=== PATIENT | male | born 1950 | race Caucasian/White ===

== ENCOUNTER 2021-12-23 09:26 | Observation (INO) ==
--- NOTE | 2021-12-12 10:54 | PAT Medication Instructions ---
Medication Instructions Date of Service December 12, 2021 Home Medications cholecalciferol (vitamin D3) 125 mcg (5,000 unit) capsule 125 mcg PO QAM lactobacillus combination no.4 3 billion cell capsule (Probiotic) 3,000 mmu cells PO Q OTHER DAY mecobalamin (vitamin B12) 1,000 mcg disintegrating tablet,sublingual 1,000 mcg SUBLINGUAL QAM famotidine 20 mg tablet 20 mg PO BID multivitamin 1 tab PO QAM psyllium seed (sugar) oral powder (Metamucil (sugar)) 1 tbsp PO QAM turmeric root extract 500 mg capsule 500 mg PO QAM STOP taking 2 weeks before surgery turmeric root extract 500 mg capsule 500 mg PO QAM DO NOT take the morning of surgery cholecalciferol (vitamin D3) 125 mcg (5,000 unit) capsule 125 mcg PO QAM lactobacillus combination no.4 3 billion cell capsule (Probiotic) 3,000 mmu cells PO Q OTHER DAY mecobalamin (vitamin B12) 1,000 mcg disintegrating tablet,sublingual 1,000 mcg SUBLINGUAL QAM multivitamin 1 tab PO QAM psyllium seed (sugar) oral powder (Metamucil (sugar)) 1 tbsp PO QAM Take morning of surgery With a small sip of water, OTHERWISE NOTHING TO EAT OR DRINK AFTER MIDNIGHT: famotidine 20 mg tablet 20 mg PO BID Take evening before surgery famotidine 20 mg tablet 20 mg PO BID Other Notes If you have any questions please call us at [phone] or [phone] or [phone] or [phone]
--- NOTE | 2021-12-15 13:51 | Anesthesiology Consultation ---
Date of Service December 15, 2021 Assessment & Plan (1) Encounter for pre-operative examination: - will attempt to obtain last PCP office note. - COVID screening: Per assessment on 12/15/2021: Travel screen negative, no known COVID-19 positive contacts or current COVID-19 related symptoms in past 2 weeks. Patient vaccinated. Surgeon arranging preop COVID testing, scheduled 12/19/2021. Awaiting results. Chart Review Chart Review: Pending: Refer to Additional Notes / Consult section and Patient seen in Pre Admission Testing Teaching & Discussion Pre-Anesthesia Teaching/Discussion Notes: Instructed NPO after midnight before surgery, except medications with 15 cc of water. Medication instructions provided according to the PAT guidelines. History Surgery Operation Date: 12/23/21 11:15 Proposed Procedures p Laparoscopic Robotic Assisted Radical Retropubic Prostatectomy Possible Open, Possible Pelvic Lymph Node Dissection Possible Suprapubic Tube Replacement - Tyrell Rinaldi MD Height/Weight Height: 5 ft 7 in Weight: 78.3 kg Allergies Allergy/AdvReac Type Severity Reaction Status Date / Time gluten Allergy Severe celiac Verified 12/11/21 11:41 disease wheat Allergy Severe celiac Verified 12/11/21 11:41 disease Medications Home Medications Medication Instructions Recorded Confirmed Last Taken cholecalciferol (vitamin D3) 125 125 mcg PO QAM 04/02/21 12/11/21 Unknown mcg (5,000 unit) capsule lactobacillus combination no.4 3 3,000 mmu cells PO Q OTHER DAY 04/02/21 12/11/21 Unknown billion cell capsule (Probiotic) mecobalamin (vitamin B12) 1,000 1,000 mcg SUBLINGUAL QAM 04/02/21 12/11/21 Unkn own mcg disintegrating tablet,sublingual famotidine 20 mg tablet 20 mg PO BID tab 11/20/21 12/11/21 Unknown multivitamin 1 tab PO QAM 11/20/21 12/11/21 Unknown psyllium seed (sugar) oral powder 1 tbsp PO QAM g 11/20/21 12/11/21 Unknown (Metamucil (sugar)) turmeric root extract 500 mg 500 mg PO QAM 12/11/21 12/11/21 Unknown capsule Past Medical History Medical History (Updated 12/16/21 @ 08:48 by Rekha Hogan PA-C) 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 Exercise / Class Metabolic Activity II 4-5 Yardwork/Stairs/Walk up hill (denies CP or SOB with 1 FOS) Past Family History Family History Family/Other , Maternal Cousin passed age 70 of Prostate Cancer No problems noted. Family/Other , Fraternal Cousin passed age 73 of stomach cancer Prostate cancer, Onset Age: 71 Had radiation - did well Mother No problems noted. Father , Passed age 55 of Emphysema No problems noted. Brother No problems noted. Brother No problems noted. Sister No problems noted. Son , Passed 1 month of age of CMV No problems noted. Son , Passed age 35 of overdose No problems noted. Son No problems noted. Son No problems noted. Son No problems noted. Daughter No problems noted. Other No family history of adverse response to anesthesia Past Surgical History Surgical History History of cholecystectomy (1987) History of colonoscopy History of esophagogastroduodenoscopy (EGD) History of inguinal hernia repair (08/01/21) History of prostate biopsy (10/20/21) History of vasectomy (1980) History of wisdom tooth extraction Past Anesthesia History No Hx of Anesthesia Complications and No Family Hx of Anesthesia Complications History of PONV No Hx of PONV and No Hx of Motion Sickness Social History Smoking Status: Former smoker Do You Dip or Chew Tobacco: No Smoking End Date: quit 53yrs ago Hx Alcohol Use: No Hx Substance Use: No substance use type: does not use Review of Systems Occasional snoring, denies witnessed apneas. Occasional reflux with certain foods. Patient denies chest pain, shortness of breath, dyspnea on exertion, fever, chills, cough, wheezing, or palpitations. Physical Exam Vital Signs Vitals BP 126/75 P 83 TEMP 98.4 SP02 95% on RA RESP 17 Physical Full cervical extension range of motion without pain Full TMJ range of motion TMD 3 finger breaths Mallampati Score 2 Dentition: intact, multiple chipped teeth; denies loose teeth, implants or bridges Lungs: normal respiratory effort. Clear throughout to auscultation, no adventitious breath sounds Cardiac: regular rate and rhythm, no murmurs noted Carotid arteries: negative bruit bilat Extremities: no distal extremity edema Lab Results Anesthesia Preop Results Results Anesthesia Widget: WBC 6.76 K/uL (4.8-10.8) 12/15/21 Hgb 12.3 g/dL (14.0-18.0) L 12/15/21 Hct 37.1 % (42-52) L 12/15/21 Plt 199 K/uL (130-400) 12/15/21 Na 137 mmol/L (136-145) 12/15/21 K 4.2 mmol/L (3.5-5.1) 12/15/21 Cl 105 mmol/L (98-107) 12/15/21 CO2 28 mmol/L (21-32) 12/15/21 BUN 18 mg/dl (6-23) 12/15/21 Creat 1.08 mg/dl (0.6-1.4) 12/15/21 Glucose Level 104 mg/dl (70-99(Fasting)) H 12/15/21 PT 10.2 Seconds (9.0-12.0) 12/15/21 PTT 27.1 Seconds (21.0-31.0) 12/15/21 INR 1.0 (0.9-1.1) 12/15/21 Urine Color Yellow 12/15/21 Urine Appearance Clear (Clear) 12/15/21 Urine pH 6.0 (4.5-7.5) 12/15/21 Urine Specific [place] 1.009 (1.000-1.030) 12/15/21 Urine Protein Negative (Negative) 12/15/21 Urine Glucose (UA) Negative (Negative) 12/15/21 Urine Ketones Negative (Negative) 12/15/21 Urine Blood Negative (Negative) 12/15/21 Urine Nitrite Negative (Negative) 12/15/21 Urine Bilirubin Negative (Negative) 12/15/21 Urine Urobilinogen Negative (Negative) 12/15/21 Urine Leukocyte Esterase Negative (Negative) 12/15/21 Blood Type A Positive 12/15/21 Antibody Screen NEGATIVE 12/15/21 Testing Electrocardiogram Date: 07/30/21 sinus rhythm with occ supraventricular premature complexes, rate 62 bpm abnormal left axis deviation incomplete RBBB possible LVH Chest X-Ray Date: 12/15/21 Attempts made to see if CXR was completed 07/2021 as pt expressed may have done for pre-op last year, no available records. Pt agreeable to CXR today in PAT. No acute cardiopulmonary findings Other Testing Abdomen/pelvis CT 09/30/2021 IMPRESSION: 1. Motion degraded exam. 2. Prior right-sided inguinal hernia repair. Thick-walled complex extraperitoneal fluid collection within the right hemipelvis measuring up to 6.5 cm has mildly decreased in size from the 09/05/2021 exam and appears to be contiguous with a smaller collection within the right inguinal canal which has also decreased in size from prior. Small amount of complex free fluid is also noted within the right pericolic gutter. Hematoma versus abscess are the differential considerations. 3. Prostamegaly with chronic bladder outlet obstruction. 4. Colonic diverticulosis without acute diverticulitis. 5. Additional findings as above. (detailed report under imaging)
[~2021-12-23 09:26] MED LIST: HEPARIN SOD 5,000 UNIT/0.5 ML VIAL SQ SCH; LR 15ML/HR IV SCH
[2021-12-23] MEDS ORDERED: ROCURONIUM BROMIDE 10 MG/ML 5 ML VIAL IV ONE (09:56)
[2021-12-23] MEDS ORDERED: PROPOFOL IV EMULSION 10 MG/ML 20 ML VIAL IV ONE ×2 (09:56→12:17)
[2021-12-23] MEDS ORDERED: LIDOCAINE 2% 2 ML VIAL/AMP(20MG/ML) INFIL ONE (09:56)
[2021-12-23] MEDS ORDERED: MIDAZOLAM HCL 1 MG/ML 2ML VIAL ONE (09:56)
[2021-12-23] MEDS ORDERED: fentaNYL citrate 100 MCG/2 ML VIAL ONE (09:57)
[2021-12-23] MEDS ORDERED: ePHEDrine sulfate 50 MG/ML AMP IV PRN (10:55)
[2021-12-23] MEDS ORDERED: ATROPINE SULFATE 0.1 MG/ML 10ML SYR IV PRN (10:55)
[2021-12-23] MEDS ORDERED: ONDANSETRON INJ 2 MG/ML 2 ML VIAL IV PRN ×2 (10:55→16:25)
[2021-12-23] MEDS ORDERED: fentaNYL citrate 100 MCG/2 ML VIAL IV PRN (10:55)
--- NOTE | 2021-12-23 11:00 | History & Physical Bridge Note ---
Date of Service December 23, 2021 History & Physical Bridge Note I have examined the patient, reviewed the History & Physical and in the interval since the performance of the History & Physical I have noted the following changes of clinical significance: no changes noted
[2021-12-23] MEDS ORDERED: BUPIVACAINE 0.5 % 5 MG/1 ML MPF 30ML VIAL ONE (11:10)
[2021-12-23] MEDS ORDERED: BELLADONNA/OPIUM SUPP 60 MG SUPP PR ONE ×2 (11:51→13:15)
[2021-12-23] MEDS ORDERED: HYDROmorphone INJ 2 MG/ML SYR/VIAL ONE (11:52)
[2021-12-23] MEDS ORDERED: KETAMINE 50 MG/5 ML SYRINGE ONE (11:52)
[2021-12-23] MEDS ORDERED: DEXAMETHASONE SOD INJ 4 MG/ML VIAL ONE (12:09)
[2021-12-23] MEDS ORDERED: PHENYLEPHRINE HCL 10 MG/ML VIAL ONE (12:09)
[2021-12-23] MEDS ORDERED: ONDANSETRON INJ 2 MG/ML 2 ML VIAL ONE (12:09)
[2021-12-23] MEDS ORDERED: ePHEDrine sulfate 50 MG/ML SYR ONE (12:09)
[2021-12-23] MEDS ORDERED: SURGICEL ABSORB HEMOSTAT 2IN X 14IN TOP ONE (13:16)
[2021-12-23] MEDS ORDERED: FLOSEAL HEMOSTATIC MATRIX 10ML TOP ONE (13:16)
[2021-12-23] MEDS ORDERED: GLYCOPYRROLATE 0.2 MG/ML VIAL ONE (14:12)
[2021-12-23] MEDS ORDERED: NEOSTIGMINE METHYLSULFATE 1 MG/ML 10ML VIAL ONE (14:12)
--- NOTE | 2021-12-23 14:46 | Operative Report ---
PG Post Operative Report Pre & Post Diagnosis Operation Date: 12/23/21 11:15 Pre-Op Diagnosis: Prostate Cancer Post-Op Diagnosis: Prostate Cancer I identified the patient and participated in the time-out.: Yes Procedure Operation Date: 12/23/21 11:15 Actual Procedures p Laparoscopic Robotic Assisted Radical Retropubic Prostatectomy(Not Applicable) - Tyrell Rinaldi MD Surgeon Jackson Rinaldi MD Bean Sprout Grower Elida Ramsay Estimated Blood Loss 100 Findings Consistent with Post-Op Diagnosis Specimens 1. Periprostatic fat 2. Prostate and seminal vesicles Description of Procedure The patient was identified in the preoperative holding area, appropriate informed consents were reviewed and completed, and he was transported to the operating suite. Subcutaneous heparin was administered in the pre-operative holding area. Upon arrival in the operating suite, he received appropriate antibiotics and general anesthesia. He was positioned in dorsal lithotomy, a B&O suppository was inserted after digital rectal exam, and he was prepped and draped in standard fashion. A Avila catheter was inserted in the sterile field. A Veress needle was passed per umbilicus with uniform insufflation of the abdomen to 15mmHg. He was placed in steep Trendelenburg position. A periumbilical incision was then made to accommodate a 12mm Visiport with 10mm 0degree laparoscope. Inspection of the abdomen was carried out, and there was no evidence of traumatic entry or injury secondary to the Veress needle. After confirming a clear anterior abdominal wall, ports were subsequently placed in standard robotic prostatectomy fashion without incident. To begin the robotic portion of the case, the left lateral aspect of the sigmoid was mobilized off of the left pelvic side wall to allow the pouch of Flex to be appropriately visualized. I then made an incision in the pouch of Flex, overlying the seminal vesicles. Both SVs as well as the ampullae of the vasa were entirely dissected, with the vasa transected 3cm from the prostate. The medial umbilical ligaments were then controlled with bipolar electrocautery just inferior to the umbilicus. Following cauterization, they were divided utilizing monopolar cautery. A peritoneal incision was carried from this location to the medial aspect of the internal inguinal rings bilaterally with care to avoid opening through the ring. Of note, he has had a prior laparoscopic inguinal hernia repair in the anterior surface of his bladder was completely adherent to the underside of the pubic arch. I carefully meticulously work my way around the arch until the bone was exposed and the bladder was entirely freed from its adhesions. The fat overlying the prostate was removed en bloc and passed off the table as a specimen labeled "periprostatic fat". The endopelvic fascia was cleared during this portion of the procedure, and subsequently opened - first on the right and then the left. The incision through the endopelvic fascia began near the prostate-bladder junction and was carried to the apex with extreme care to preserve all lateral levator musculature as well as the periurethral musculature and sphincter complex. I additionally preserved the puboprostatic ligaments. I then controlled the DVC with a 3-0 V-lock suture in overlapping/figure of 8 fashion. I elected to avoid dissection of the lymph nodes given his prior hernia repair and scar tissue around the vasculature on both sides. My attention then returned to the prostate, with identification of the bladder neck aided by gentle traction on the Avila catheter and lateral to medial pressure at the presumed level of the bladder neck with the robotic instruments. An anterior cystotomy was made, the Avila balloon deflated and the catheter guided through the incision to allow anterior retraction. I attempted to preserve maximal bladder neck musculature as I circumferentially dissected a round the bladder neck. After incision through the posterior aspect of the mucosa, the dissection was carried through detrusor muscle until the bilateral ampullae of the vasa were identified. The previously dissected vasa and SVs were brought through the incision and used to elevated the prostate anteriorly. A posterior plane behind the prostate was then developed - splitting Denonvilliers's fascia. This dissection was carried as far as possible towards the apex as well as far as possible laterally. An incision in the lateral prostatic fascia was then made bilaterally to facilitate control of the vascular pedicles and preservation of the nerve bundles. Vasculature running along the posterior/lateral aspect of the prostate was preserved as well as the tissue containing the nerves. The pedicles were then controlled with a series of Weck clips. The apical attachments of the prostate were remaining at that stage. The DVC was divided after control with bipolar cautery over the prostate. Continuous inspection from anterior and lateral views allowed me to closely follow the apical contour of the prostate and maximally preserve urethral length and tissue. The prostate was entirely freed at that point, and collected in an EndoCatch bag before being moved out of the field of vision. Hemostasis was confirmed and anastomosis of the bladder and urethra was completed utilizing a double armed V- Lock stitch. A new Avila catheter was inserted and the anastomosis tested with irrigation. There was no evidence of leak. A charles style stitch was placed bilaterally to functionally marsupialize the area of the lymph node dissection. The robot was undocked, the specimen extracted through expansion of the shaggy- umbilical camera port. The fascia was closed with a series of 0-PDS figure of 8 stitches. The right medical records assistant port was closed in two layers - with a figure of 8 0-Vicryl to reapproximate the fascia followed by 4-0 Monocryl to close the skin. Monocryl was used to close all other skin incisions. All wounds were dressed with Dermabond. The case was concluded and the patient taken to the PACU in stable condition. Elida Ramsay was present and scrubbed from incision to closure. There were no complications. I attest to the content of the Intraoperative Record and any orders documented therein. Any exceptions are noted below.
[2021-12-23 15:04] LABS: Basophils # (auto) 0.03 K/uL (0-0.2); Basophils % (auto) 0.4 %; Eosinophils # (auto) 0.02 K/uL (0-0.5); Eosinophils % (auto) 0.3 %; Hematocrit (blood only) 38.3 % (42-52); Hemoglobin 12.7 g/dL (14.0-18.0); Immature Granulocytes # (auto) 0.01 K/uL (0.00-0.02); Immature Granulocytes % (auto) 0.1 %; Lymphocytes # (auto) 0.85 K/uL (1.2-3.4); Lymphocytes % (auto) 11.4 %; Mean Corpuscular Hemoglobin 31.1 pg (25-34); Mean Corpuscular Volume 93.9 fL (80-100); Mean Platelet Volume 9.6 fL (7.4-10.4); Monocytes # (auto) 0.12 K/uL (0.11-0.59); Monocytes % (auto) 1.6 %; Neutrophils # (auto) 6.43 K/uL (1.4-6.5); Neutrophils % (auto) 86.2 %; Platelet Count 203 K/uL (130-400); RDW Coefficient of Variation 13.4 % (11.5-14.5); Red Blood Count 4.08 M/uL (4.7-6.1); White Blood Count 7.46 K/uL (4.8-10.8)
--- NOTE | 2021-12-23 15:20 | Anesthesiology Progress Note ---
Date of Service December 23, 2021 Anesthesia Post Procedure Vital Signs Vital Signs: Temp Pulse Pulse Resp BP BP Pulse Ox 12/23/21 15:10 94 H 16 143/85 H 97 12/23/21 15:00 85 16 155/83 H 98 12/23/21 14:50 89 16 138/79 99 12/23/21 14:41 36.3 C L 86 16 152/83 H 100 12/23/21 09:55 36.7 C 75 18 123/75 95 Transfer of Care Handoff Completed per policy Notes Mental Status: alert / awake / arousable and participated in evaluation Patient Amnestic to Procedure: Yes Nausea / Vomiting: adequately controlled Pain: adequately controlled Airway Patency, RR, SpO2: stable & adequate BP & HR: stable & adequate Hydration State: stable & adequate Anesthetic Complications: no major complications apparent and Pt Satisfied with anesthetic care
[2021-12-23 15:23] LABS: Mean Corpuscular Hgb Conc 33.2 g/dL (32-36)
[2021-12-23 15:25] LABS: BUN Creatinine Ratio 14.2 (10-20); Calcium 9.1 mg/dl (8.5-10.1); Creatinine Clr Calc Pharmacy 51.3 ml/min; Est GFR (African American) 69.1 ml/min; Est GFR (Non-African American) 59.6 ml/min; Potassium 4.2 mmol/L (3.5-5.1)
[2021-12-23] MEDS ORDERED: MoRPHine SULFATE 4 MG/ML 1 ML CARP\\VIAL IV PRN (16:25)
[2021-12-23] MEDS ORDERED: MoRPHine SULFATE 2 MG/ML CARP IV PRN (16:25)
[2021-12-23] MEDS ORDERED: oxyCODONE HCL IR 5 MG TAB (IMMEDIATE RELEASE) PO PRN ×2 (16:25)
[2021-12-23] MEDS ORDERED: ACETAMINOPHEN 325 MG TAB PO PRN (16:25)
[2021-12-23] MEDS: LACTATED RINGER'S 1,000 ML IV SCH (18:16)
[2021-12-23] MEDS: FAMOTIDINE 20 MG TAB PO SCH (20:32)
[2021-12-23] MEDS: HEPARIN SOD 5,000 UNIT/0.5 ML VIAL SQ SCH (20:32)
[2021-12-23] MEDS: ceFAZolin 2000MG 2,000 MG/15 ML SYR IV SCH (20:33)
[2021-12-24] MEDS: LACTATED RINGER'S 1,000 ML IV SCH (04:00)
[2021-12-24] MEDS: ceFAZolin 2000MG 2,000 MG/15 ML SYR IV SCH (04:00)
[2021-12-24] MEDS: HEPARIN SOD 5,000 UNIT/0.5 ML VIAL SQ SCH (08:26)
[2021-12-24] MEDS: FAMOTIDINE 20 MG TAB PO SCH (08:26)
[2021-12-24 08:39] LABS: Basophils # (auto) 0.01 K/uL (0-0.2); Basophils % (auto) 0.1 %; Hematocrit (blood only) 35.5 % (42-52); Hemoglobin 11.8 g/dL (14.0-18.0); Immature Granulocytes # (auto) 0.01 K/uL (0.00-0.02); Immature Granulocytes % (auto) 0.1 %; Lymphocytes # (auto) 1.48 K/uL (1.2-3.4); Lymphocytes % (auto) 20.2 %; Mean Corpuscular Hemoglobin 31.2 pg (25-34); Mean Corpuscular Hgb Conc 33.2 g/dL (32-36); Mean Corpuscular Volume 93.9 fL (80-100); Mean Platelet Volume 9.6 fL (7.4-10.4); Monocytes # (auto) 0.75 K/uL (0.11-0.59); Monocytes % (auto) 10.3 %; Neutrophils # (auto) 5.06 K/uL (1.4-6.5); Neutrophils % (auto) 69.3 %; Platelet Count 205 K/uL (130-400); RDW Coefficient of Variation 13.7 % (11.5-14.5); RDW Standard Deviation 46.9 fL (36.4-46.3); Red Blood Count 3.78 M/uL (4.7-6.1); White Blood Count 7.31 K/uL (4.8-10.8)
[2021-12-24 09:22] LABS: BUN Creatinine Ratio 13.1 (10-20); Calcium 8.2 mg/dl (8.5-10.1); Creatinine Clr Calc Pharmacy 57.5 ml/min; Est GFR (African American) 79.4 ml/min; Est GFR (Non-African American) 68.5 ml/min; Potassium 4.4 mmol/L (3.5-5.1)
--- NOTE | 2021-12-24 10:24 | Urology Progress Note ---
Date of Service December 24, 2021 Assessment & Plan (1) Prostate cancer: Plan: Ambulate Avila teaching Advance diet Discharge home later today Admission and Anticipated Discharge Date Admission Date: December 23, 2021 Subjective Doing very well Has been out of bed Pain well controlled Urine clear Ready for food Physical Exam Physical Exam: incisions Appropriate Clear urine Results & Data ([facility]) Vital Signs (Past 12 Hours) Vital Signs Temp Pulse Resp BP Pulse Ox 12/24/21 07:54 37.5 C 75 16 139/73 95 12/24/21 03:27 37.3 C 77 18 131/72 93 12/23/21 23:35 37.5 C 101 H 20 115/68 94 PG Care Time/CCT Total # of Minutes Spent Total Time Spent with Patient: Total time spent is greater than 50% in coordination of care (as documented) at patient's floor/unit and/or counseling patient: Coding Level of Care Code None Diagnoses Prostate cancer C61
--- NOTE | 2021-12-24 14:12 | Discharge Summary ---
Date of Service December 24, 2021 Admission HPI Per Admitting Provider Recently diagnosed prostate cancer here for prostatectomy Admission Exam Per Admitting Provider Constitutional well developed and well nourished Neck neck nontender Respiratory normal respiratory effort; no respiratory distress and does not use accessory muscles Cardiovascular Rate/Rhythm: regular rate Vessels: radial pulses present Extremities: no edema Gastrointestinal (Abdomen) Inspection/Auscultation: abdomen normal to inspection Percussion/Palpation: abdomen soft; abdomen nontender and no guarding Musculoskeletal Head/Neck/Chest: normocephalic and head atraumatic Extremities: extremities normal to inspection Skin no rashes and no lesions Trauma: no evidence of skin trauma Neurologic awake; not obtunded Speech / Cognition: normal speech Motor/Sensory: no tremor Psychiatric Orientation: alert and oriented x 3 Genitourinary no CVA tenderness Lymphatic no lymphadenopathy Principal Diagnosis Prostate Cancer Discharge Exam Constitutional well developed and well nourished; no acute distress and not ill appearing Respiratory normal respiratory effort and able to speak in complete sentences; no labored breathing and no audible wheezes Gastrointestinal (Abdomen) Inspection/Auscultation: + abdominal surgical incision (Incisions appropriate) Musculoskeletal Head/Neck/Chest: normocephalic Neurologic moves all extremities and awake Psychiatric Orientation: alert, oriented x 3 and cooperative Genitourinary Avila catheter draining clear yellow urine Discharge Data Allergies Allergy/AdvReac Type Severity Reaction Status Date / Time gluten Allergy Severe celiac Verified 12/23/21 09:59 disease wheat Allergy Severe celiac Verified 12/23/21 09:59 disease Procedures Performed Operation Date: 12/23/21 11:15 Actual Procedures p Laparoscopic Robotic Assisted Radical Retropubic Prostatectomy(Not Applicable) - Tyrell Rinaldi MD Hospital Course (1) Prostate cancer: 71yo M admitted s/p Robotic Laparoscopic Assisted Radical Retropubic Prostatectomy with Dr. Rinaldi. - No acute issues postoperatively. - Labs appropriate. - Tolerated diet. - Ambulated without issue. - Avila catheter intact, draining clear yellow urine. - Expected clinical course reviewed with patient, he verbalized understanding. All questions were answered. - Postoperative follow-up appointments in place. - Pt stable for discharge POD #1, home with Avila catheter. Total Time Total Time Spent Total Time Spent (In Minutes): 15 Discharge Plan Discharge Items Patient Disposition: Home - Self-Care Reason For Visit: Prostate Cancer Discharge Diagnosis: Prostate Cancer Activity: Per Instructions section Lifting: No more than 25 pounds Bathing Comment: OK to shower. No tub baths or soaks. Sexual Activity: Wait until after follow-up appointment Exercise/Sports: Wait until after follow-up appointment Driving/Machine Use: Do not drive if taking prescription pain medication. Non-emergency contact: Surgeon and Urologist Call non-emergency contact if: you have any medication questions, your pain is not controlled, your pain is worsening, you have a fever, your wound has increased redness, your wound has increased drainage and your wound pain has increased Follow-up/Referrals: Margie Fragoso D.O. [Primary Care Provider] - Urology,Nurse [FAKE FOR SCHEDULES] - 12/29/21 10:30 am Diet: Regular Addtl Attending Provider Instructions: Please take all medications as prescribed and keep follow-ups as scheduled. Please call our office at [phone] with any questions, concerns or need to reschedule appointments for any reason. We are happy to assist you. While catheter is in place, please wash with warm soapy water and a fresh wash cloth twice a day with mild bar soap (Dove, Dial, etc.). Your nursing visit appointment to have your catheter removed should already be made, if you have any question regarding this, please call our office. We have sent an antibiotic to your pharmacy of choice. Please begin antibiotic as prescribed the day BEFORE your scheduled catheter removal at [facility]. Please continue antibiotic every 12 hours until complete. It is okay to take AZO (available over the counter) as needed for a few days to relieve burning with urination. This may cause your urine or feces to turn an orangish-color. This is expected. The only exception is if you have been prescribed Pyridium (phenazopyridine), this is the same medication and should not take AZO be taken in addition to prescription version. Please do not drive, drink alcohol or operate machinery while taking prescription pain medication. We recommend continuing a stool softener (i.e. Colace) to prevent co nstipation/straining for at least two weeks after your procedure. Some blood is to be expected in your urine as you heal, you may even see recurrences of blood in your urine for up to 4-6 months after your procedure. Drink plenty of fluids, avoid sexual or strenuous exercise and do not lift >25 pounds until your follow-up. Call [facility] at [phone] promptly if you experience: Fever of 101F or greater Pain thats not controlled with medicine Trouble urinating or inability to urinate Dark, bloody urine for more than 12 hours Pending Studies at Discharge: Yes (Pathology) Stand-Alone Forms: My [facility] [employer], Opioid Pain Management, Smoking Cessation Medications and DC Order Prescriptions: New ciprofloxacin HCl 500 mg tablet 500 mg PO BID 3 Days Qty: 6 RF: 0 oxycodone-acetaminophen [Percocet] 5-325 mg tablet 1 tab PO Q8H PRN (Reason: pain) Qty: 7 RF: 0 docusate sodium [Colace] 100 mg capsule 100 mg PO BID Qty: 30 RF: 0 Continued mecobalamin (vitamin B12) 1,000 mcg tablet,disintegrating 1,000 mcg sublingual QAM RF: 0 cholecalciferol (vitamin D3) 125 mcg (5,000 unit) capsule 125 mcg PO QAM RF: 0 Probiotic 3 billion cell capsule 3,000 mmu cells PO Q OTHER DAY RF: 0 famotidine 20 mg tablet 20 mg PO BID RF: 0 multivitamin Tablet 1 tab PO QAM RF: 0 Metamucil (sugar) Powder 1 tbsp PO QAM RF: 0 turmeric root extract 500 mg Capsule 500 mg PO QAM RF: 0 Discharge Orders: Discharge Order (Routine); Ordered 12/24/21 Ordered By: Elida Bo/Other Patient Handouts: Emptying and Cleaning Your ..., Leg Bag Care Dc Admission Data Admit Date/Time: 12/23/21 14:45 Attending Provider: Tyrell Rinaldi Admit Provider: Tyrell Rinaldi Primary Care Provider: Margie Fragoso Other Interventions: Discharge Summary Assessment (RN) Last Done: 12/24/21 14:13 Coding Level of Care Code D/C DAY MANAGEMENT <30 MINS Diagnoses Prostate cancer C61
== END 2021-12-24 15:34 | disposition home or self-care (01) ==
LOC: ASU 09:26 → 3N 14:45 → INTOOBSV 14:45